=== PATIENT | female | born 1995 ===

== ENCOUNTER 2023-12-18 05:16 | Emergency (ER) | payer MEDICAID ==
--- NOTE | 2024-01-07 13:39 | US ---
EXAMINATION TYPE: Transabdominal DATE OF EXAM: 12/18/2023 COMPARISON: NONE CLINICAL INDICATION: Female, 28 years old with history of spotting; EXAM PERFORMED: Transabdominal (TA) EXAM MEASUREMENTS: GESTATIONAL AGE / DATING Physician Established: (7 weeks/2 days) EDC: 08/03/2024 Dates by LMP: ( weeks/ days) EDC: Dates by First Scan: ( weeks/ days) EDC: Dates by Current Scan for: ( weeks/ days) EDC: MATERNAL ANATOMY Uterus: 8.2 x 3.4 x 4.4 cm Right Ovary: 2.7 x 1.6 x 3.2 cm Left Ovary: 3.7 x 1.9 x 2.1 cm Post CDS / Adnexa: CDS Fluid Presence of free fluid: Yes Presence of corpus luteal cyst: right ovary Presence of subchorionic bleed: NA GESTATION / SURVEY CRL: Not seen ( weeks/ days) MSD: Not seen ( weeks/ days) Yolk Sac (normal less than 6mm): Not seen Heart Rate: Not seen bpm Rhythm: NA IUP: No IUP seen at this time, endometrium = 0.6 cm Nuchal Translucency 10-14wks (normal less than 3mm): NA Age Appropriate Anatomy Cord Insertion: NA Limbs: NA Calvarium: NA Date of LMP: 10/28/2023 Beta HcG (if available): Not available at this time IMPRESSION: No evidence of intrauterine gestational sac. This can be seen in early , ectopic a nd spontaneous . Follow up pelvic ultrasound in 5-7 days and serial beta hCG studies are eloina mmended.
== END 2023-12-18 08:30 | disposition home or self-care (01) ==
LOC: EC 05:16
DX: O02.1 Missed abortion (principal)
CPT/HCPCS: 76801; 86850; 86900; 86901; 99283